=== PATIENT | male | born 1955 | race Caucasian/White ===

== ENCOUNTER 2023-10-31 08:12 | Day surgery (SDC) | payer OTHER, SELFPAY ==
[2023-10-30 12:58] VITALS: BMI 37.0
[2023-10-30 13:33] LABS: % Basophils 0.9 % (0-2); % Eosinophils 2.5 % (0-6); % Immature Granulocytes 0.7 % (0-0.5); % Lymphocytes 27.6 % (20.5-51.1); % Monocytes 6.1 % (1.7-9.3); % Neutrophils 62.2 % (42.2-75.2); Absolute Basophils 0.1 10^3/uL (0-0.2); Absolute Eosinophils 0.2 10^3/uL (0-0.7); Absolute Immature Granulocytes 0.1 10^3/uL (0-0.05); Absolute Lymphocytes 2.1 10^3/uL (1.2-3.4); Absolute Monocytes 0.5 10^3/uL (0.1-0.6); Absolute Neutrophils 4.8 10^3/uL (1.4-6.5); Hematocrit 40.9 % (39.0-52.0); Mean Corp Hgb Conc. 34.2 g/dL (33.0-37.0); Mean Corpuscular Hgb 28.7 pg (27.0-31.0); Mean Corpuscular Volume 83.8 fL (80.0-94.0); Mean Platelet Volume 11.6 fL (7.4-10.4); Nucleated Red Blood Cells % 0 % (-); Platelet Count 198 10^3/uL (130-400); Red Blood Cell Count 4.88 10^6/uL (4.70-6.10); Red Cell Dist. Width 12.6 % (11.5-14.5); White Blood Cell Count 7.7 10^3/uL (4.8-10.8)
[2023-10-30 13:41] LABS: ALT (SGPT) 33 U/L (0-50); AST (SGOT) 30 U/L (17-59); Albumin 4.7 g/dl (3.5-5.0); Alkaline Phosphatase 45 U/L (38-126); Blood Urea Nitrogen 18 mg/dl (9-20); Carbon Dioxide 28 mmol/L (22-30); Chloride 104 mmol/L (98-107); Estimated Creatinine Clearance 80 ml/min; Glucose 144 mg/dl (70-99); Potassium 4.2 mmol/L (3.5-5.1); Sodium 139 mmol/L (135-145); Total Bilirubin 0.8 mg/dl (0.2-1.3); Total Protein 7.3 g/dl (6.3-8.2); eGFR > 60.00
--- NOTE | 2023-10-30 14:33 | HPS.HSE ---
Family Physician
-
Family Physician: Nanda Dillard
Chief Complaint
-
Chest pain--left cardiac catheterization.
History of Present Illness
69-year-old male with known coronary disease, status post LAD and proximal diagonal CASSIE in 2009 per procedure card. . Additional coronary risk factors include hypertension, hyperlipidemia, obesity, diabetes, history of tobacco abuse, and strong
family history. He began to experience chest pain approximately three months ago. Pain was located mid sternal with radiation to upper back with associated shortness of breath particularly with exertion. Patient states this discomfort was alleviated
at rest and began when he was cleaning snow from his car. Pet CT was performed which revealed moderate size ischemia in the inferior segment with mild inferior hypokinesis and moderate calcification of aortic arch as aorta LAD and RCA. He was
determined to be needed left cardiac catheterization for possible intervention, he currently denies dizziness, palpitations, chest pain, shortness of breath, fever, chills, and nausea, vomiting diary at present.
Medical History
Past Medical History
Past Medical History: Reports Other (see below)
Additional Past Medical History:
CAD-s/p CASSIE to LAD and in proximal diagonal 2009 (per card-cardiology note states 7 stents?)
Obesity, BMI 37.0
Hypertension.
Hyperlipidemia.
Non-insulin dependent diabetes.
BPH
Gastroesophageal reflux, disease.
Diverticulitis, status post bowel resection.
Remote, tobacco abuse.
Past Surgical History: Reports Bowel Resection and Cardiac (stents)
Social History
Tobacco: Former Smoker
Alcohol: None
Family History
Family History: Early CAD (F60s, M50s, sister 60s)
Allergies / Home Medications
Allergies reflects when Allergies were last updated in [facility].
Home Medications with original date entered in [facility]
Allergy/Medication List:
see chart
Review of Systems
-
A 12 point ROS was completed and negative except as noted: Yes
Physical Exam
Physical Exam
General: Well Developed and Well Nourished
HEENT: NormoCephalic and Anicteric
Respiratory: Clear
Cardiac: S1/S2 and Regular Rhythm
Neuro: AO x 3 and Cranial Nerves Intact
Laboratory Results
-
10/30/23 13:15
10/30/23 13:15
Laboratory Results
Total Bilirubin 0.8 mg/dl (0.2-1.3) 10/30/23 13:15
AST 30 U/L (17-59) 10/30/23 13:15
ALT 33 U/L (0-50) 10/30/23 13:15
Alkaline Phosphatase 45 U/L (38-126) 10/30/23 13:15
Impression/Plan
-
IMPRESSION/PLAN:
Chest pain. Left heart cath.
[2023-10-31] VITALS (9 sets, daily range): BP systolic 121–164; BP diastolic 59–76; BMI 37.0
[2023-10-31 08:54] LABS: Glucose - Point of Care 164 mg/dl (70-99)
[2023-10-31] MEDS: NSS 312 ML IV (09:16)
[2023-10-31 10:28] LABS: ACT-LR - POC 268 Seconds (116-155)
--- NOTE | 2023-10-31 11:39 | ITS.CL.CATH ---
Director Of Front Office - Catheterization
Cardiac Catheterization
Procedure Report:
CARDIAC CATHETERIZATION REPORT
Date of Procedure: 10/31/2023
Referring: Mikael Gonzalez DO
Indication: Angina with exertional dyspnea in patient with multiple stents (7) placed in 2009 at [facility]
HEMODYNAMIC DATA
AO: 178/81
LV: 178/15
LEFT VENTRICULOGRAPHY: Mild inferior hypokinesis with EF 58%
CORONARY ANGIOGRAPHY
Dominance: Right
Left Main: Normal
LAD: There is a widely patent proximal to mid LAD stent spanning the takeoff of D1 and S1. There is a focal 50% lesion in the mid LAD spanning the takeoff of S2. There is 30-40% mid LAD stenosis spanning the takeoff of the S3 branch. The ostial
stent in D1 is patent
Circumflex: The circumflex proper has 20% mid stenosis. There is a long area of stenosis to 60-70% in the distal circumflex past the takeoff of OM 3 extending to the origin of the first left posterolateral branch. The circumflex terminates with
medium sized LPL 1 and LPL 2 branches. OM1 is large with 30% proximal to mid stenosis. OM 2 is small. OM 3 is large with 40% mid stenosis.
RCA: The RCA is dominant and severely diseased. There are multiple stents extending from the proximal RCA through the midportion and into the distal RCA proximal to the PDA origin. There are multiple high-grade lesions in the mid and distal RCA
within the stented segment. In retrospect, there is what appears to be an under-deployed distal RCA stent. All of the stents were placed in 2009 and neither the report nor films of this procedure are available for review. The PDA is large with
50-60% mid to distal stenosis in the RCA terminates with a medium sized RPL.
Angioplasty: At the conclusion of the diagnostic study we decided to proceed with RCA intervention. A JR4 guide catheter was used. Heparin was used for anticoagulation. A BMW wire was successfully passed into the RPDA. We were unable to pass a
2.5 x 15 trek balloon through the most distal lesion which corresponded to the area of stent underexpansion. This balloon was removed in favor of a 1.5 x 12 Euphora and a 6 Japanese guide liner was advanced into the RCA. We were able to get the 1.5
Euphora to the midportion of the distal RCA lesion and several inflations were performed to 16 javon. We then advanced the guide liner into the mid RCA just above the crux for more aggressive support. A 2.5 x 15 trek was then advanced across the
lesion and dilated to 16 javon for 22 seconds. There was a significant waist in the middle of the balloon when inflated consistent with an extremely resistant lesion. At this point we brought a 2.5 x 20 NC Euphora balloon into the vessel and
inflated for 45 seconds at 23 javon and then for 52 seconds at 27 javon. Either of these inflations resulted in complete balloon expansion.
Closure Device: None-the procedure was performed via the right radial artery. The Cesario's test was normal prior to the procedure.
Radiation (mGy): 1282
DAP (cm2.Gy): 116.3
Fluoroscopy time: 16 minutes
CONCLUSIONS
1: Systemic hypertension
2: Inferior hypokinesis with EF 58%
3. Multivessel CAD as described.
4. Multisegment complex in-stent RCA disease treated with balloon angioplasty. No attempt was made to place a stent as the distal RCA in-stent lesion could not be fully dilated even at 28 javon of pressure. The angioplasty yielded a good
angiographic result; however, there will certainly be a high risk of restenosis given the long segment of stent requiring treatment and the inability to fully dilate what appeared to be an under deployed distal RCA stent placed in 2009. If
symptomatic restenosis develops he will need evaluation for CABG
5. Recommend dual antiplatelet therapy for 2 months then aspirin alone
Copy to: Mikael Gonzalez DO, Nanda Dillard MD
Arie Rivas MD, [facility], [facility]
[2023-10-31] MEDS: ZOFRAN 4 MG IV (12:11)
[2023-10-31] MEDS: NSS 780 IV (12:17)
[2023-10-31 13:06] LABS: ACT-LR - POC > 397 Seconds (116-155)
--- NOTE | 2023-10-31 16:02 | CM ---
Reviewed chart. Met with Mr. Heart to review discharge plans. He states prior to admission he resides with his spouse in a one story home with three steps to enter. He states prior to admission he was independent with ambulation and adls. He
states he does not have any DME in the home. He states he has a prescription plan and uses [facility]. The discharge plan is to return home with spouse when medically stable.
--- NOTE | 2023-10-31 16:07 | PTCARENOTE ---
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 The patient is aaox3, vss, 98% on RA. NSR is noted on the monitor. His right wrist dressing is c/d/i. A positive right radial pulse is noted. He has no c/o pain. I instructed him on his activity
restrictions an oriented him to his room. His call nunez is within reach.
[2023-10-31 16:43] LABS: Glucose - Point of Care 229 mg/dl (70-99)
[2023-10-31] MEDS: NOVOLOG FLEXPEN-MODERATE RESISTANCE 3 UNITS SC (17:58)
[2023-10-31] MEDS: COREG 25 MG PO (19:54)
[2023-10-31 21:43] LABS: Glucose - Point of Care 121 mg/dl (70-99)
[2023-11-01 02:03] VITALS: BP 142/64
--- NOTE | 2023-11-01 02:30 | PTCARENOTE ---
Patient ambulating self in room. Tele monitor remains SR w/ occasional PVCs, HR in the 60-70's. No complaints of pain or discomfort. Sating 93-94% RA, and denies any SOB. Right radial dressing intact. Patient aware of activity restrictions, and
verbalized understanding. Patient aware of POC.
[2023-11-01 02:52] LABS: Hematocrit 35.9 % (39.0-52.0); Hemoglobin 12.7 g/dL (13.0-18.0); Mean Corp Hgb Conc. 35.4 g/dL (33.0-37.0); Mean Corpuscular Hgb 29.4 pg (27.0-31.0); Mean Corpuscular Volume 83.1 fL (80.0-94.0); Mean Platelet Volume 11.7 fL (7.4-10.4); Platelet Count 161 10^3/uL (130-400); Red Blood Cell Count 4.32 10^6/uL (4.70-6.10); Red Cell Dist. Width 12.6 % (11.5-14.5); White Blood Cell Count 8.2 10^3/uL (4.8-10.8)
[2023-11-01 03:05] LABS: Blood Urea Nitrogen 17 mg/dl (9-20); Calcium 9.1 mg/dl (8.4-10.2); Carbon Dioxide 24 mmol/L (22-30); Chloride 106 mmol/L (98-107); Estimated Creatinine Clearance 73 ml/min; Glucose 150 mg/dl (70-99); HDL Cholesterol 29 mg/dl; LDL Cholesterol, Calculated 34 mg/dl; Potassium 3.6 mmol/L (3.5-5.1); Sodium 139 mmol/L (135-145); Total Cholesterol 105 mg/dl (50-199); Triglyceride 213 mg/dl (10-149); Very Low Density Lipoprotein 42 mg/dl (0-30); eGFR > 60.00
[2023-11-01 06:43] VITALS: BP 137/70
[2023-11-01 06:49] LABS: Glucose - Point of Care 150 mg/dl (70-99)
[2023-11-01] MEDS: TRICOR 145 MG PO (07:48)
[2023-11-01] MEDS: ASPIR LOW (ENTERIC COATED) 81 MG PO (07:48)
[2023-11-01] MEDS: PROTONIX 40 MG PO (07:49)
[2023-11-01] MEDS: LIPITOR 40 MG PO (07:49)
[2023-11-01] MEDS: COZAAR 50 MG PO (07:49)
[2023-11-01] MEDS: NORVASC 5 MG PO (07:49)
[2023-11-01] MEDS: PLAVIX 75 MG PO (07:49)
[2023-11-01] MEDS: COREG 25 MG PO (07:50)
[2023-11-01] MEDS: NOVOLOG FLEXPEN-MODERATE RESISTANCE 1 UNITS SC (07:50)
--- NOTE | 2023-11-01 08:41 | W.PN.UPDATE ---
Update Note
Progress Note Update
Pt of Dr. Gonzalez with CAD s/p [facility] 10/31/23. �Multisegment complex in-stent RCA disease treated with balloon angioplasty.� No attempt was made to place a stent as the distal RCA in-stent lesion could not be fully dilated even at 28 javon of pressure.�
The angioplasty yielded a good angiographic result; however, there will certainly be a high risk of restenosis given the long segment of stent requiring treatment and the inability to fully dilate what appeared to be an under deployed distal RCA
stent placed in 2009.� If symptomatic restenosis develops he will need evaluation for CABG� Recommend dual antiplatelet therapy for 2 months then aspirin alone
Pt denies CP,palps, SOB overnight. No issues with R radial site .
AAOx 3
Lungs clear
S1 S2 reg
R radial no hematoma, there is a palpable R radial pulse
tele; NSR/SB
Plan:
d/c home
f/u Dr. Gonzalez.
--- NOTE | 2023-11-01 08:53 | W.DS.TRANS ---
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
-
Discharge Instructions:
Discharge Diagnosis/Procedures CAD, s/p angioplasty to Right Coronary artery
Diet Low Cholesterol,Diabetic, Carb Controlled
Driving Restrictions No driving for 24 hours
Stop these medications: HOLD metformin post cath- OK to resume on Friday
, 11/02 in AM
STOP omeprazole (prilosec) while you are on
plavix- will interact and make plavix
ineffective. You will take pantoprazole (
protonix) while you are on plavix.
Instructions:
Stand-Alone Forms: DC Instructions- Cath/EP Lab
Changes to Home Medications: Yes
Discharge Medications:
DC Medications w/original date entered in [facility]
amlodipine 5 mg tablet 5 mg PO DAILY 10/27/23
aspirin 81 mg tablet,delayed release 81 mg PO DAILY 10/27/23
atorvastatin 40 mg tablet 40 mg PO DAILY 10/27/23
carvedilol 25 mg tablet 25 mg PO BID 10/27/23
fenofibrate nanocrystallized 145 mg tablet 145 mg PO DAILY 10/27/23
losartan 50 mg tablet 50 mg PO DAILY 10/27/23
metformin 1,000 mg tablet 1,000 mg PO BID 10/27/23
multivitamin 1 tab PO DAILY 10/27/23
clopidogrel 75 mg tablet 75 mg PO DAILY #60 tabs 10/31/23
nitroglycerin 0.4 mg sublingual tablet 0.4 mg sublingual [id number] PRN chest pain #25 tabs 10/31/23
pantoprazole 40 mg tablet,delayed release 40 mg PO DAILY #60 tabs 10/31/23
Home Medication Changes
clopidogrel 75 mg tablet 75 mg PO DAILY #60 tabs 10/31/23
nitroglycerin 0.4 mg sublingual tablet 0.4 mg sublingual [id number] PRN chest pain #25 tabs 10/31/23
pantoprazole 40 mg tablet,delayed release 40 mg PO DAILY #60 tabs 10/31/23
Pending Results: No
[2023-11-01 09:27] LABS: Glycohemoglobin (HgbA1c) 7.3 % (4.0-5.6)
[2023-11-01 10:56] LABS: Glucose - Point of Care 210 mg/dl (70-99)
[2023-11-01] MEDS: NOVOLOG FLEXPEN-MODERATE RESISTANCE 3 UNITS SC (11:03)
== END 2023-11-01 13:32 | disposition home or self-care (01) ==
LOC: CATH 08:12
PROVIDERS: Nurse Practitioner; ATTENDING PHYSICIAN Internal Medicine Cardiovascular Disease; FAMILY PHYSICIAN Family Medicine; OTHER PHYSICIAN Internal Medicine Cardiovascular Disease
DX: I25.110 Atherosclerotic heart disease of native coronary artery with unstable angina pectoris (principal); I10 Essential (primary) hypertension; E66.01 Morbid (severe) obesity due to excess calories; E78.5 Hyperlipidemia, unspecified; E11.9 Type 2 diabetes mellitus without complications; Z95.5 Presence of coronary angioplasty implant and graft; Z79.82 Long term (current) use of aspirin; Z79.84 Long term (current) use of oral hypoglycemic drugs; Z79.02 Long term (current) use of antithrombotics/antiplatelets; Z87.891 Personal history of nicotine dependence
CPT/HCPCS: 36415; 80048; 80053; 80061; 82962; 83036; 85025; 85027; 85347; 92920; 93005; 93458; C1725; C1769; C1894; Q9967